=== PATIENT | female | born 1980 | race Caucasian/White ===

== ENCOUNTER 2018-06-27 13:27 | Day surgery (SDC) | payer OTHER ==
[2018-06-24 14:38] LABS: BASOPHILS # (AUTO) 0.04 x10^3/uL (0-0.1); BASOPHILS % (AUTO) 0 % (0-1); EOSINOPHILS # (AUTO) 0.07 x10^3/uL (0-0.4); EOSINOPHILS % (AUTO) 1 % (1-7); LYMPHOCYTES # (AUTO) 2.55 x10^3/uL (1-3.4); LYMPHOCYTES % (AUTO) 29 % (22-44); MD NO; MEAN CORPUSCULAR HEMOGLOBIN 31.3 pg (27.0-34.8); MEAN CORPUSCULAR HGB CONC 34.6 g/dL (32.4-35.8); MEAN CORPUSCULAR VOLUME 90.5 fL (80-100); MEAN PLATELET VOLUME 7.6 fL (7.4-10.4); MONOCYTES # (AUTO) 0.46 x10^3/uL (0.2-0.8); MONOCYTES % (AUTO) 5 % (2-9); NEUTROPHILS # (AUTO) 5.78 x10^3/uL (1.8-6.8); NEUTROPHILS % (AUTO) 65 % (42-75); PLATELET COUNT 429 x10^3/uL (130-400); RED BLOOD COUNT 3.93 x10^6/uL (3.82-5.3); RED CELL DISTRIBUTION WIDTH 12.7 % (9.6-15.2)
[~2018-06-27] VITALS: Ht 165.1 cm; Wt 79.0 kg
[~2018-06-27 13:27] MED LIST: ARMO150T4 PO; CLON0.25 PO; DEXT15CA PO; LAMO200T3 PO; SUMA100T3 PO; TRAZ-137 PO
[2018-06-27] MEDS ORDERED: LACTATED RINGERS 1,000 ML IV SCH ×2 (13:48→17:54)
[2018-06-27] MEDS ORDERED: LIDOCAINE-MPF 1%, 2ML INFIL ONE (14:00)
[2018-06-27] MEDS ORDERED: ACETAMINOPHEN 500 MG TABLET PO ONE (14:00)
[2018-06-27] MEDS ORDERED: SCOPOLAMINE PATCH, 1.5MG PATCH.TD72 TD ONE (14:00)
[2018-06-27] MEDS ORDERED: GABAPENTIN 300 MG CAPSULE PO ONE (14:00)
[2018-06-27 14:08] VITALS: BP 115/79
[2018-06-27] MEDS ORDERED: BUPIVACAINE/PF 0.25% ONE (15:06)
[2018-06-27] MEDS ORDERED: EPINEPHRINE 1 MG/ML, 1ML ONE (15:07)
[2018-06-27] MEDS ORDERED: hydrALAzine 20 MG/ML, 1ML IV PRN (15:30)
[2018-06-27] MEDS ORDERED: PROMETHAZINE 25 MG/ML, 1ML IV PRN (15:30)
[2018-06-27] MEDS ORDERED: PROMETHAZINE 25 MG SUPP PR PRN (15:30)
[2018-06-27] MEDS ORDERED: MORPHINE SULFATE 4 MG/ML, 1ML IVPush PRN ×2 (15:30→18:00)
[2018-06-27] MEDS ORDERED: PROMETHAZINE 12.5 MG SUPP PR PRN (15:30)
[2018-06-27] MEDS ORDERED: HALOPERIDOL 5 MG/ML IV PRN (15:30)
[2018-06-27] MEDS ORDERED: PROMETHAZINE 25 MG/ML, 1ML IM PRN ×2 (15:30)
[2018-06-27] MEDS ORDERED: FENTANYL PF 100 MCG/2ML IV PRN (15:30)
[2018-06-27] MEDS ORDERED: LABETALOL 5 MG/ML SYRINGE IV PRN (15:30)
[2018-06-27] MEDS ORDERED: ONDANSETRON 2MG/ML, 2ML IV PRN (15:30)
[2018-06-27] MEDS ORDERED: MEPERIDINE/PF 25MG/0.5ML IVPush PRN (15:30)
[2018-06-27] MEDS ORDERED: ONDANSETRON ODT 8 MG PO PRN (15:30)
[2018-06-27] MEDS ORDERED: GLYCOPYRROLATE 0.2MG/1ML, 5ML ONE (15:51)
[2018-06-27] MEDS ORDERED: KETOROLAC 30 MG/1 ML ONE (15:51)
[2018-06-27] MEDS ORDERED: DEXAMETHASONE 4 MG/ML, 1ML ONE (15:51)
[2018-06-27] MEDS ORDERED: NEOSTIGMINE 1 MG/ML, 10ML ONE (15:51)
[2018-06-27] MEDS ORDERED: ONDANSETRON 2MG/ML, 2ML ONE (15:51)
[2018-06-27] MEDS ORDERED: ROCURONIUM 10 MG/ML,10ML ONE (15:51)
[2018-06-27] MEDS ORDERED: PROPOFOL 10 MG/ML, 20ML ONE (15:51)
[2018-06-27] MEDS ORDERED: CEFAZOLIN 1,000 MG ONE (15:51)
[2018-06-27] MEDS ORDERED: OXYcodone 5 MG/5 ML ORAL.SOL UDC ONE ×2 (17:59→18:24)
[2018-06-27] MEDS ORDERED: OXYcodone/APAP 5/325MG TABLET PO PRN (18:00)
[2018-06-27] MEDS ORDERED: ONDANSETRON 2MG/ML, 2ML IVPush PRN (18:00)
[2018-06-27] MEDS: OXYcodone 5 MG/5 ML ORAL.SOL UDC PO PRN ×2 (18:06→18:24)
[2018-06-27] MEDS ORDERED: HYDROmorphone 2 MG/ML, 1ML ONE (18:23)
[2018-06-27] MEDS: HYDROmorphone 2 MG/ML, 1ML IVPush PRN ×2 (18:24→18:29)
[2018-06-27] MEDS ORDERED: IBUPROFEN 600 MG TABLET PO SCH (21:00)
== END 2018-06-27 22:08 | disposition home or self-care (01) ==
LOC: OR 13:27 → 4NOR 19:00 → OUT 22:08
PROVIDERS: ATTEND Obstetrics & Gynecology
DX: Z30.2 Encounter for sterilization (principal); Z79.899 Other long term (current) drug therapy; Z90.49 Acquired absence of other specified parts of digestive tract; Z98.890 Other specified postprocedural states; F31.9 Bipolar disorder, unspecified
CPT/HCPCS: 36415; 58670; 74018; 84702; 85025; 88302; J0171; J0690; J1100; J1170; J1885; J2405; J2704; J2710; J3490; J7120; G0378